=== PATIENT | male | born 1950 | race Caucasian/White ===

== ENCOUNTER 2018-04-08 09:46 | Emergency (ER) | payer MEDICARE ==
--- NOTE | 2018-04-08 11:56 | RAD ---
PORTABLE CHEST 1 VIEW: DATE: 04/08/2018. TIME: 9:28 a.m. HISTORY: Confusion, weakness. 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 There are changes of median sternotomy. The heart size is normal. The lungs are expanded without fo lauren areas of consolidation, pneumothoraces, hillary pulmonary edema, or pleural effusions. IMPRESSION: No radiographic evidence of acute cardiopulmonary process. POS: VIDHI
--- NOTE | 2018-04-08 12:19 | CT ---
CT OF BRAIN PERFORMED WITHOUT COTNRAST ENHANCEMENT: HISTORY: Altered mental status. Weakness. COMPARISON: 07/01/2015 study. FINDINGS: There is generalized ventricular and sulcal prominence. Encephalomalacia change of the left frontal lobe is again noted. There are postop left frontal craniotomy changes again seen. There are no sign s of intracerebral hemorrhage or extraaxial fluid collections. Some of the areas of decreased attenu ation over the left frontal region appear slightly more prominent than on the prior examination but s till appear chronic in nature. No mass effect noted. There is some ex vacuo dilatation of the left frontal horn. Frontal sinuses are clear. The right maxillary sinus is completely opacified. IMPRESSION: Chronic-appearing encephalomalacia change of the left frontal lobe. POS: LIZZY
== END 2018-04-08 11:48 | disposition left against medical advice (07) ==
LOC: ERS 09:46
DX: R53.1 Weakness (principal); I25.10 Atherosclerotic heart disease of native coronary artery without angina pectoris; E10.9 Type 1 diabetes mellitus without complications; I10 Essential (primary) hypertension; F41.9 Anxiety disorder, unspecified; F32.9 Major depressive disorder, single episode, unspecified; Z79.899 Other long term (current) drug therapy; Z79.82 Long term (current) use of aspirin; Z79.84 Long term (current) use of oral hypoglycemic drugs
CPT/HCPCS: 70450; 71045; 93005

== ENCOUNTER 2018-10-24 10:49 | Outpatient (CLI) | payer MEDICARE ==
--- NOTE | 2018-10-24 12:08 | RAD ---
SOFT TISSUE NECK ONE VIEW: HISTORY: Right-sided parotid swelling. FINDINGS: A single lateral view of the soft tissue neck is performed. Extensive post surgical changes overly t he neck. By prior CT, these are on the left side of the neck. The epiglottis appears unremarkable. No prevertebral soft tissue swelling or retropharyngeal mass. The visualized glottis region appears unremarkable. No overt foreign body. IMPRESSION: Post surgical changes. No evidence for plain x-ray soft tissue neck abnormality seen on this single lateral view. Given concern for swelling, follow-up soft tissue neck CT scan with intravenous contra st is recommended. POS: OFF
== END 2018-10-24 10:50 | disposition home or self-care (01) ==
LOC: RAD-FRANK 10:49
PROVIDERS: ATTEND Nurse Practitioner Family
DX: K11.1 Hypertrophy of salivary gland (principal); Z98.890 Other specified postprocedural states
CPT/HCPCS: 70360

== ENCOUNTER 2020-03-05 11:03 | Inpatient (IN) | payer MEDICARE, OTHER ==
[2020-03-05 11:44] LABS: Hemoglobin 14.2 g/dL (14.0-18.0); Mean Corpuscular HGB CONC 31.9 g/dL (32.0-36.0); Mean Corpuscular Hemoglobin 29.4 pg (27.0-31.0); Mean Corpuscular Volume 91.9 fL (78.0-98.0); Mean Platelet Volume 9.3 fL (7.4-10.4); Platelet Count 291 thou/uL (130-400); RBC Distribution Width 12.3 % (11.5-14.5); Red Blood Cell (RBC) Count 4.85 mill/uL (4.70-6.10)
[2020-03-05 12:00] LABS: Band 13 % (5-11); Lymphocytes 10 % (21-51); MDiff Complete? YES; Monocytes 5 % (0-10); Neutrophil 71 % (42-75); Platelet Morphology Comment Appears Adequate; RBC Morphology Normal; Reactive Lymphocytes 1 % (0-10)
[2020-03-05 12:11] LABS: ALT (SGPT) 29 U/L (8-55); AST (SGOT) 75 U/L (5-34); Albumin 3.5 g/dL (3.4-4.8); Alkaline Phosphatase 55 U/L (40-110); Anion Gap 23 mmol/L (10-20); BUN (Urea Nitrogen) 56 mg/dL (8.4-25.7); Bilirubin, Total 0.6 mg/dL (0.2-1.2); CK (CPK) 1135 U/L (30-200); Calc. Creatinine Clearance 0 mL/min (70-130); Calcium 8.9 mg/dL (7.8-10.44); Carbon Dioxide 13 mmol/L (23-31); Chloride 109 mmol/L (98-107); Estimated GFR-MDRD 17; Glucose 126 mg/dL (83-110); Potassium 5.8 mmol/L (3.5-5.1); Protein, Total 7.5 g/dL (5.8-8.1); Sodium 139 mmol/L (136-145)
[2020-03-05] MEDS ORDERED: EPINEPHrine 1 MG/10 ML Abboject SYRINGE ONE ×2 (12:16)
[2020-03-05] MEDS ORDERED: Calcium Chloride 1 GM/10 ML Abboject SYRINGE ONE (12:16)
[2020-03-05] MEDS ORDERED: Sodium Bicarb 50 MEQ/50 ML Abboject 8.4% SYRINGE ONE ×2 (12:16)
[2020-03-05] MEDS ORDERED: Amiodarone 150 MG/3 ML VIAL ONE (12:16)
[2020-03-05] MEDS ORDERED: Dextrose 50% Abboject 50 ML SYRINGE ONE (12:16)
--- NOTE | 2020-03-05 12:30 | RAD ---
PORTABLE CHEST: Date: 03/05/2020 INDICATION: Shortness of breath. COMPARISON: 04/08/2018. FINDINGS: There are hazy alveolar infiltrates seen in both mid and lower lung rankin. Borderline cardiomegaly w ith postop sternotomy change. IMPRESSION: Bilateral infiltrates. POS: AGW
[2020-03-05 12:31] LABS: CKMB 4.7 ng/mL (0-6.6)
[2020-03-05 13:24] LABS: SARS-CoV-2 NAA Rapid Test DETECTED (NotDetected)
[2020-03-05] MEDS ORDERED: Aspirin Chewable 81 MG TAB ONE (13:33)
[2020-03-05] MEDS ORDERED: Azithromycin 500 MG VIAL ONE (13:33)
[2020-03-05] MEDS ORDERED: cefTRIAXone\\ROCEPHIN 2 GM VIAL ONE (13:33)
[2020-03-05] MEDS ORDERED: Enoxaparin Sodium 40 MG/0.4 ML SYRINGE ONE (14:42)
[2020-03-05] MEDS ORDERED: Dexamethasone 10 MG/ML VIAL ONE (14:42)
[2020-03-05 14:43] LABS: Lactic Acid 1.9 mmol/L (0.5-2.2)
[2020-03-05 15:23] LABS: INR-International Normal Ratio 1.1; PTT 24.5 sec (22.9-36.1)
[2020-03-05 16:20] LABS: Troponin I 0.641 ng/mL (< 0.028)
[2020-03-05] MEDS ORDERED: Ondansetron PF 4 MG/2 ML Vial IVP PRN (16:32)
[2020-03-05] MEDS ORDERED: Acetaminophen 325 MG TAB PO PRN (16:32)
[2020-03-05] MEDS ORDERED: Calcium Carbonate 500 MG ChewTAB PO PRN (16:32)
[2020-03-05] MEDS ORDERED: HYDROcodone/Acetaminophen 5/325 mg Tablet PO PRN (16:32)
[2020-03-05] MEDS ORDERED: Senokot S 8.6-50 MG TAB PO PRN (16:32)
[2020-03-05] MEDS ORDERED: Dextrose 50% Abboject 50 ML SYRINGE SLOW IVP PRN (16:37)
[2020-03-05] MEDS ORDERED: HumaLOG 300 UNITS/3 ML VIAL SC PRN (16:37)
[2020-03-05] MEDS ORDERED: Dextrose 5% in Water 1,000 ML IV PRN (16:37)
[2020-03-05 18:33] VITALS: BMI 29.5
--- NOTE | 2020-03-05 18:40 | PDOC.HHP ---
Hospitalist HPI - History of Present Illness SOB/cough History of Present Illness: The patient is unfortunate 69 years old gentleman who has significant past medical histories of type 1 diabetes, hypertension, traumatic brain injury, seizure disorder, CAD with history of CABG who presented to ED with complaint of short of breath and worsening dyspnea. Patient report of cough nonproductive. Patient stated he started feeling generalized weakness over the past few weeks but gradually worse since he attended the last week. Initial work-up in the ED, positive for COVID. Chest x-ray suggestive of pneumonia. He is currently maintaining his oxygen well on 2 L. His troponin was elevated. However he denies any chest pain. Also renal function has worsened compared to previous admission. Patient stated he had not been eating well or drinking much fluid. He also report of subjective fever at home. ED Course: Patient was started on Decadron, and empiric IV antibiotic with Rocephin, azithromycin. He also given a dose of Lovenox. Hospitalist ROS - Review of Systems Other: Complete review of systems have been assessed and discussed with the patient. Negative and positive pertinent symptoms noted in the HPI; ALL other systems are reviewed and negative. Hospitalist History - Past Medical History Cardiac: reports: CAD, HTN, Hyperlipidemia Psych: reports: Anxiety, Depression - Past Surgical History Past Surgical History: reports: CABG, Total Knee Replacement, Other (brain surgery, CEA) - Family History Family History: reports: cancer - Social History Smoking Status: Never smoker Alcohol: reports: None Drugs: reports: none Living Situation: With Family Activity level: independent ambulation - Exam General Appearance: NAD, awake alert Eye: PERRL ENT: dry oral mucosa Neck: supple Heart: RRR, no murmur Respiratory: normal chest expansion, no tachypnea, rhonchi Gastrointestinal: soft, non-tender Extremities: no cyanosis Skin: normal turgor Neurological: cranial nerve grossly intact Musculoskeletal: normal tone Psychiatric: normal affect, normal behavior, A&O x 3 Hospitalist Results - Labs Result Diagrams: 03/05/20 11:29 03/05/20 11:29 Lab results: WBC 11.0 thou/uL (4.8-10.8) H 03/05/20 11:29 Hgb 14.2 g/dL (14.0-18.0) 03/05/20 11:29 Hct 44.5 % (42.0-52.0) 03/05/20 11:29 MCV 91.9 fL (78.0-98.0) 03/05/20 11:29 Plt Count 291 thou/uL (130-400) 03/05/20 11:29 Band Neuts % (Manual) 13 % (5-11) H 03/05/20 11:29 Sodium 139 mmol/L (136-145) 03/05/20 11:29 Potassium 5.8 mmol/L (3.5-5.1) H 03/05/20 11:29 Chloride 109 mmol/L (98-107) H 03/05/20 11:29 Carbon Dioxide 13 mmol/L (23-31) L 03/05/20 11:29 BUN 56 mg/dL (8.4-25.7) H 03/05/20 11:29 Creatinine 3.49 mg/dL (0.7-1.3) H 03/05/20 11:29 Glucose 126 mg/dL (83-110) H 03/05/20 11:29 Lactic Acid 1.9 mmol/L (0.5-2.2) 03/05/20 14:17 Calcium 8.9 mg/dL (7.8-10.44) 03/05/20 11:29 Total Bilirubin 0.6 mg/dL (0.2-1.2) 03/05/20 11:29 AST 75 U/L (5-34) H 03/05/20 11:29 ALT 29 U/L (8-55) 03/05/20 11:29 Alkaline Phosphatase 55 U/L (40-110) 03/05/20 11:29 Creatine Kinase 1135 U/L (30-200) H 03/05/20 11:29 CK-MB (CK-2) 4.7 ng/mL (0-6.6) 03/05/20 11:29 Troponin I 0.641 ng/mL (< 0.028) H* 03/05/20 15:44 B-Natriuretic Peptide 39.0 pg/mL (0-100) 03/05/20 11:44 Serum Total Protein 7.5 g/dL (5.8-8.1) 03/05/20 11:29 Albumin 3.5 g/dL (3.4-4.8) 03/05/20 11:29 - Radiology Interpretation Chest x-ray Status: image reviewed by me Hospitalist H&P A/P - Plan Plan: The patient is unfortunate 69 years old gentleman who has significant past medical history of traumatic brain injury, CAD with history of CABG, hypertension, dyslipidemia, seizure disorder, who presented to the ED with progressive generalized weakness, fever cough and dyspnea has worsened for the last few days. Patient was found positive for COVID pneumonia. COVID-19 pneumonia - respiratory status appears to be stable --admit to tele. cont O2 supplement --cont Azithromycin/Rocephin empirically --Decadron 10 mg daily --Given elevated d-dimer and trop, unable to obtain CTA - will treat him empirically with Lovenox 1 mg/kg daily based on renal function, split into BID JOHN on CKD stage III --pt appears volume depleted on exam --hold ACEi, avoid nephrotoxic agent --IVF hydration, follow renal function Elevated troponin --in setting of JOHN, unclear significance. trend level. check 2D echo --Lovenox as above. cont home meds ASA/BB Elevated D-dimer --likely d/t COVID 19 infection. Unable to obtain CTA, treat empirically with Lovenox based on renal function. CAD with history of CABG --no cp, resume home meds Hypertension --BP stable cont home meds Diabetes type 2 --Hold Metformin d/t renal function. ISS. Add Lantus, monitor BG and adjust prn as pt is on steroid Seizure disorder --cont Keppra DVT ppx: high risk, Lovenox GI ppx: Pepcid, pt is on steroid Code Status: FULL
[2020-03-05 19:54] LABS: Critical Call Chem Troponin I RESULT DECREASING
[2020-03-05] MEDS ORDERED: Enoxaparin Sodium 40 MG/0.4 ML SYRINGE SC SCH (21:00)
[2020-03-05] MEDS: Enoxaparin Sodium 60 MG/0.6 ML SYRINGE SC SCH (21:25)
[2020-03-05] MEDS: Metoprolol Tartrate 25 MG TAB PO SCH (21:26)
[2020-03-05] MEDS: Famotidine/PF 20 mg/2ml Vial SLOW IVP SCH (21:26)
[2020-03-05] MEDS: hydrALAZINE 25 MG TAB PO SCH (21:26)
[2020-03-05] MEDS: Insulin Glargine 10 UNITS in Pre-Filled Syringe SC SCH (21:27)
[2020-03-05] MEDS: levETIRAcetam 500 MG TAB PO SCH (21:27)
[2020-03-05 22:31] LABS: Bilirubin Negative (Negative); Blood, Urine 2+ (Negative); Clarity Turbid (Clear); Glucose, Urine (Dipstick) Normal (Negative); Ketone, Urine Negative (Negative); Leukocyte Negative Leu/uL (Negative); Nitrite Negative (Negative); Protein, Urine (Dipstick) 30 mg/dL (Neg-Trace); Specific Gravity, Urine 1.014 (1.002-1.036); Squamous Epithelial 0-3 HPF (0-3); Urobilinogen Normal mg/dL (Less than 2)
[2020-03-05 22:38] LABS: Bacteria/HPF 1+ HPF (None Seen)
[2020-03-05 22:40] LABS: Urine Culture Reflex Yes Yes
[2020-03-06 04:44] LABS: #Lymphocytes 0.6 thou/uL (1.20-3.40); #Monocytes 0.3 thou/uL (0.11-0.59); #Neutrophils 5.1 thou/uL (1.40-6.50); %Eosinophils 0.3 % (0.0-10.0); %Lymphocytes 9.7 % (21.0-51.0); %Monocytes 4.5 % (0.0-10.0); %Neutrophils 85.4 % (42.0-75.0); Hemoglobin 12.9 g/dL (14.0-18.0); Mean Corpuscular HGB CONC 34.2 g/dL (32.0-36.0); Mean Corpuscular Hemoglobin 30.7 pg (27.0-31.0); Mean Platelet Volume 8.7 fL (7.4-10.4); Platelet Count 307 thou/uL (130-400); RBC Distribution Width 11.9 % (11.5-14.5); Red Blood Cell (RBC) Count 4.21 mill/uL (4.70-6.10)
[2020-03-06 05:02] LABS: Anion Gap 18 mmol/L (10-20); BUN (Urea Nitrogen) 64 mg/dL (8.4-25.7); Calc. Creatinine Clearance 31 mL/min (70-130); Calcium 8.6 mg/dL (7.8-10.44); Carbon Dioxide 15 mmol/L (23-31); Chloride 115 mmol/L (98-107); Estimated GFR-MDRD 20; Glucose 150 mg/dL (83-110); Potassium 4.6 mmol/L (3.5-5.1); Sodium 143 mmol/L (136-145)
[2020-03-06] MEDS ORDERED: Dexamethasone 4 MG TAB PO SCH (08:00)
[2020-03-06] MEDS: Enoxaparin Sodium 60 MG/0.6 ML SYRINGE SC SCH ×2 (09:37→21:09)
[2020-03-06] MEDS: Aspirin 81 mg Enteric Coated Tablet PO SCH (09:37)
[2020-03-06] MEDS: hydrALAZINE 25 MG TAB PO SCH ×3 (09:38→21:10)
[2020-03-06] MEDS: levETIRAcetam 500 MG TAB PO SCH ×2 (09:38→21:12)
[2020-03-06] MEDS: Metoprolol Tartrate 25 MG TAB PO SCH ×2 (09:38→21:12)
[2020-03-06] MEDS: Oxybutynin 5 MG TAB PO SCH (09:39)
[2020-03-06] MEDS ORDERED: cefTRIAXone\\ROCEPHIN 1 GM in Sodium Chloride 0.9% 100 ML IVPB SCH (14:00)
[2020-03-06] MEDS: Azithromycin 500 MG in Sodium Chloride 0.9% 250 ML 250 ML IVPB SCH (14:01)
[2020-03-06] MEDS ORDERED: hydrALAZINE 20 MG/ML VIAL SLOW IVP PRN (17:13)
--- NOTE | 2020-03-06 17:16 | PDOC.HOSPP ---
- Subjective Subjective: Patient was seen examined at bedside. Blood pressure is elevated. He is slightly more hypoxic this morning, he is currently is on 5 L via nasal cannula. His white count has normalized. His hyperkalemia resolved. He is still metabolic acidosis. His IV fluids have been adjusted with sodium bicarb to correct his underlying metabolic acidosis. He denies any chest pain. Patient appeared to be comfortable on exam. I have discussed with ID given his GFR, he is excluded from Redesevir - Objective Vital Signs & Weight: Vital Signs (12 hours) Temp Pulse Resp BP Pulse Ox 03/06/20 15:00 93 L 03/06/20 14:02 67 03/06/20 13:45 91 L 03/06/20 12:00 98.3 F 67 20 179/76 H 94 L 03/06/20 08:55 98.4 F 69 20 181/78 H 92 L 03/06/20 06:25 24 H 97 Weight Admit Weight 217 lb 9.6 oz Weight 217 lb 9.6 oz I&O: 03/05/20 03/06/20 03/07/20 06:59 06:59 06:59 Intake Total 120 120 Output Total 350 Balance -230 120 Result Diagrams: 03/06/20 04:27 03/06/20 04:27 Additional Labs: Accuchecks 03/06/20 03/06/20 11:58 05:26 POC Glucose 158 H 140 H Radiology Reviewed by me: Yes EKG Reviewed by me: Yes Hospitalist ROS - Medication Medications: Active Medications Generic Name Dose Route Start Last Admin Trade Name Freq PRN Reason Stop Dose Admin Aspirin 81 mg 03/06/20 09:00 03/06/20 09:37 Aspirin 81 Mg Enteric Coated Tablet PO 81 mg DAILY CHANELL Administration Enoxaparin Sodium 50 mg 03/05/20 21:00 03/06/20 09:37 Enoxaparin Sodium 60 Mg/0.6 Ml Syringe SC 50 mg BID CHANELL Administration Famotidine 20 mg 03/05/20 21:00 03/05/20 21:26 Famotidine/Pf 20 Mg/2ml Vial SLOW IVP 20 mg QPM CHANELL Administration Hydralazine HCl 50 mg 03/05/20 21:00 03/06/20 14:02 Hydralazine 25 Mg Tab PO 50 mg TID CHANELL Administration Ceftriaxone Sodium 1 gm/ 100 mls @ 200 mls/hr 03/06/20 14:00 03/06/20 12:44 Sodium Chloride IVPB 100 mls 1400 CHANELL Administration Azithromycin 500 mg/ Sodium 250 mls @ 250 mls/hr 03/06/20 13:00 03/06/20 14:01 Chloride IVPB 250 mls 1300 CHANELL Administration Insulin Glargine 10 units/ 0.1 mls @ 0 mls/hr 03/05/20 21:00 03/05/20 21:27 Miscellaneous Medication SC 0.1 mls HS CHANELL Administration Sodium Bicarbonate 75 meq/ 1,075 mls @ 75 mls/hr 03/06/20 07:30 03/06/20 09:36 Sodium Chloride IV 1,075 mls .[id number] CHANELL Administration Levetiracetam 500 mg 03/05/20 21:00 03/06/20 09:38 Levetiracetam 500 Mg Tab PO 500 mg BID CHANELL Administration Metoprolol Tartrate 12.5 mg 03/05/20 21:00 03/06/20 09:38 Metoprolol Tartrate 25 Mg Tab PO 12.5 mg BID CHANELL Administration Oxybutynin Chloride 5 mg 03/06/20 09:00 03/06/20 09:39 Oxybutynin 5 Mg Tab PO 5 mg DAILY CHANELL Administration - Exam General Appearance: NAD Eye: PERRL ENT: normocephalic atraumatic Neck: supple Heart: RRR Respiratory: rhonchi Gastrointestinal: soft Extremities: no cyanosis Skin: normal turgor Neurological: cranial nerve grossly intact Musculoskeletal: normal tone Psychiatric: normal affect, normal behavior, A&O x 3 Hosp A/P - Plan The patient is unfortunate 69 years old gentleman who has significant past medical history of traumatic brain injury, CAD with history of CABG, hypertension, dyslipidemia, seizure disorder, who presented to the ED with progressive generalized weakness, fever cough and dyspnea has worsened for the last few days. Patient was found positive for COVID pneumonia. COVID-19 pneumonia - respiratory status appears to be stable --admit to tele. cont O2 supplement --cont Azithromycin/Rocephin empirically --Decadron 10 mg daily --Given elevated d-dimer and trop, unable to obtain CTA - will treat him empirically with Lovenox 1 mg/kg daily based on renal function, split into BID JOHN on CKD stage III --pt appears volume depleted on exam --hold ACEi, avoid nephrotoxic agent --IVF hydration, follow renal function Elevated troponin --in setting of JOHN, unclear significance. trend level. check 2D echo --Lovenox as above. cont home meds ASA/BB Elevated D-dimer --likely d/t COVID 19 infection. Unable to obtain CTA, treat empirically with Lovenox based on renal function. CAD with history of CABG --no cp, resume home meds Hypertension --BP stable cont home meds Diabetes type 2 --Hold Metformin d/t renal function. ISS. Add Lantus, monitor BG and adjust prn as pt is on steroid Seizure disorder --cont Keppra DVT ppx: high risk, Lovenox GI ppx: Pepcid, pt is on steroid Code Status: FULL
[2020-03-06] MEDS ORDERED: Amlodipine 10 MG TAB PO SCH (17:30)
--- NOTE | 2020-03-06 17:34 | PDOC.HOSPP ---
- Subjective Subjective: The patient is unfortunate 69 years old gentleman who has significant past medical histories of type 1 diabetes, hypertension, traumatic brain injury, seizure disorder, CAD with history of CABG who presented to ED with complaint of short of breath and worsening dyspnea. Patient report of cough nonproductive. Patient stated he started feeling generalized weakness over the past few weeks but gradually worse since he attended the last week. Initial work-up in the ED, positive for COVID. Chest x-ray suggestive of pneumonia. He is currently maintaining his oxygen well on 2 L. His troponin was elevated. However he denies any chest pain. Also renal function has worsened compared to previous admission. Patient stated he had not been eating well or drinking much fluid. He also report of subjective fever at home. - Objective Vital Signs & Weight: Vital Signs (12 hours) Temp Pulse Resp BP Pulse Ox 03/06/20 15:00 93 L 03/06/20 14:02 67 03/06/20 13:45 91 L 03/06/20 12:00 98.3 F 67 20 179/76 H 94 L 03/06/20 08:55 98.4 F 69 20 181/78 H 92 L 03/06/20 06:25 24 H 97 Weight Admit Weight 217 lb 9.6 oz Weight 217 lb 9.6 oz I&O: 03/05/20 03/06/20 03/07/20 06:59 06:59 06:59 Intake Total 120 120 Output Total 350 Balance -230 120 Result Diagrams: 03/06/20 04:27 03/06/20 04:27 Additional Labs: Accuchecks 03/06/20 03/06/20 03/06/20 17:28 11:58 05:26 POC Glucose 166 H 158 H 140 H Radiology Reviewed by me: Yes EKG Reviewed by me: Yes Hospitalist ROS - Medication Medications: Active Medications Generic Name Dose Route Start Last Admin Trade Name Freq PRN Reason Stop Dose Admin Aspirin 81 mg 03/06/20 09:00 03/06/20 09:37 Aspirin 81 Mg Enteric Coated Tablet PO 81 mg DAILY CHANELL Administration Enoxaparin Sodium 50 mg 03/05/20 21:00 03/06/20 09:37 Enoxaparin Sodium 60 Mg/0.6 Ml Syringe SC 50 mg BID CHANELL Administration Famotidine 20 mg 03/05/20 21:00 03/05/20 21:26 Famotidine/Pf 20 Mg/2ml Vial SLOW IVP 20 mg QPM CHANELL Administration Ceftriaxone Sodium 1 gm/ 100 mls @ 200 mls/hr 03/06/20 14:00 03/06/20 12:44 Sodium Chloride IVPB 100 mls 1400 CHANELL Administration Azithromycin 500 mg/ Sodium 250 mls @ 250 mls/hr 03/06/20 13:00 03/06/20 14:01 Chloride IVPB 250 mls 1300 CHANELL Administration Insulin Glargine 10 units/ 0.1 mls @ 0 mls/hr 03/05/20 21:00 03/05/20 21:27 Miscellaneous Medication SC 0.1 mls HS CHANELL Administration Sodium Bicarbonate 75 meq/ 1,075 mls @ 75 mls/hr 03/06/20 07:30 03/06/20 09:36 Sodium Chloride IV 1,075 mls .[id number] CHANELL Administration Levetiracetam 500 mg 03/05/20 21:00 03/06/20 09:38 Levetiracetam 500 Mg Tab PO 500 mg BID CHANELL Administration Metoprolol Tartrate 12.5 mg 03/05/20 21:00 03/06/20 09:38 Metoprolol Tartrate 25 Mg Tab PO 12.5 mg BID CHANELL Administration Oxybutynin Chloride 5 mg 03/06/20 09:00 03/06/20 09:39 Oxybutynin 5 Mg Tab PO 5 mg DAILY CHANELL Administration - Exam General Appearance: NAD Eye: PERRL ENT: normocephalic atraumatic Neck: supple Heart: RRR Respiratory: CTAB Gastrointestinal: soft Extremities: no cyanosis Skin: normal turgor Neurological: cranial nerve grossly intact Musculoskeletal: normal tone Psychiatric: normal affect Hosp A/P - Plan The patient is unfortunate 69 years old gentleman who has significant past medical history of traumatic brain injury, CAD with history of CABG, hypertension, dyslipidemia, seizure disorder, who presented to the ED with progressive generalized weakness, fever cough and dyspnea has worsened for the last few days. Patient was found positive for COVID pneumonia. COVID-19 pneumonia - respiratory status appears to be stable --cont Azithromycin/Rocephin empirically --Decadron 10 mg daily --Cont O2 supplement, monitor closely --Given elevated d-dimer and trop, unable to obtain CTA - will treat him empirically with Lovenox 1 mg/kg daily based on renal function, split into BID --GFR is less than <20, exclude from Remdesvir JOHN on CKD stage III --pt appears volume depleted on exam --hold ACEi, avoid nephrotoxic agent --IVF hydration, follow renal function, adjust fluid Elevated troponin --in setting of JOHN, unclear significance. trend level. check 2D echo --Lovenox as above. cont home meds ASA/BB Elevated D-dimer --likely d/t COVID 19 infection. Unable to obtain CTA, treat empirically with L ovenox based on renal function. CAD with history of CABG --no cp, resume home meds Hypertension --BP stable cont home meds Diabetes type 2 --Hold Metformin d/t renal function. ISS. Add Lantus, monitor BG and adjust prn as pt is on steroid Seizure disorder --cont Keppra DVT ppx: high risk, Lovenox GI ppx: Pepcid, pt is on steroid Code Status: FULL
[2020-03-06] MEDS: Famotidine/PF 20 mg/2ml Vial SLOW IVP SCH (21:10)
[2020-03-06] MEDS: Insulin Glargine 10 UNITS in Pre-Filled Syringe SC SCH (21:16)
[2020-03-07] MEDS ORDERED: Benzonatate 100 MG CAP PO PRN (04:04)
[2020-03-07] MEDS ORDERED: Guaifenesin DM 100-10/5 ML UDCUP PO PRN (04:04)
[2020-03-07 05:09] LABS: #Lymphocytes 0.3 thou/uL (1.20-3.40); #Monocytes 0.5 thou/uL (0.11-0.59); %Eosinophils 0.2 % (0.0-10.0); %Lymphocytes 2.8 % (21.0-51.0); %Monocytes 4.6 % (0.0-10.0); %Neutrophils 92.5 % (42.0-75.0); Hemoglobin 12.6 g/dL (14.0-18.0); Mean Corpuscular HGB CONC 34.7 g/dL (32.0-36.0); Mean Corpuscular Hemoglobin 31.2 pg (27.0-31.0); Mean Corpuscular Volume 89.9 fL (78.0-98.0); Mean Platelet Volume 8.4 fL (7.4-10.4); Platelet Count 384 thou/uL (130-400); RBC Distribution Width 12.1 % (11.5-14.5); Red Blood Cell (RBC) Count 4.05 mill/uL (4.70-6.10); White Blood Cell (WBC) Count 10.8 thou/uL (4.8-10.8)
[2020-03-07 05:30] LABS: Anion Gap 19 mmol/L (10-20); BUN (Urea Nitrogen) 61 mg/dL (8.4-25.7); Calc. Creatinine Clearance 35 mL/min (70-130); Calcium 8.6 mg/dL (7.8-10.44); Carbon Dioxide 16 mmol/L (23-31); Chloride 117 mmol/L (98-107); Estimated GFR-MDRD 23; Glucose 165 mg/dL (83-110); Potassium 4.3 mmol/L (3.5-5.1); Sodium 148 mmol/L (136-145)
[2020-03-07] MEDS ORDERED: Dexamethasone 4 mg/ml Vial SLOW IVP SCH (09:00)
[2020-03-07] MEDS ORDERED: Sodium Bicarbonate 75 MEQ in Dextrose 5% in Water 500 ML IV SCH ×2 (09:15→12:11)
[2020-03-07] MEDS: Amlodipine 10 MG TAB PO SCH (09:34)
[2020-03-07] MEDS: hydrALAZINE 25 MG TAB PO SCH ×3 (09:35→19:42)
[2020-03-07] MEDS: Dexamethasone 4 mg/ml Vial SLOW IVP SCH (09:35)
[2020-03-07] MEDS: Enoxaparin Sodium 60 MG/0.6 ML SYRINGE SC SCH ×2 (09:35→19:40)
[2020-03-07] MEDS: levETIRAcetam 500 MG TAB PO SCH ×2 (09:35→19:42)
[2020-03-07] MEDS: Aspirin 81 mg Enteric Coated Tablet PO SCH (09:35)
[2020-03-07] MEDS: Oxybutynin 5 MG TAB PO SCH (09:36)
[2020-03-07] MEDS: Metoprolol Tartrate 25 MG TAB PO SCH ×2 (09:36→19:41)
[2020-03-07 10:12] LABS: INR-International Normal Ratio 1.2; Prothrombin Time 15.2 sec (12.0-14.7)
[2020-03-07 10:13] LABS: PTT 31.8 sec (22.9-36.1)
[2020-03-07] MEDS: Azithromycin 500 MG in Sodium Chloride 0.9% 250 ML 250 ML IVPB SCH (11:57)
--- NOTE | 2020-03-07 16:42 | PDOC.HOSPP ---
- Subjective Encounter Date: 03/07/20 Encounter Time: 12:30 Subjective: Patient up in bed complains of mild shortness of breath. - Objective Vital Signs & Weight: Vital Signs (12 hours) Temp Pulse Resp BP Pulse Ox Pulse Ox Pulse Ox 03/07/20 16:07 98.4 F 79 20 163/78 H 93 L 03/07/20 12:26 84 L 90 L 03/07/20 11:42 97.9 F 71 20 167/74 H 96 03/07/20 09:00 98 F 82 20 192/87 H 94 L 03/07/20 08:30 96 Pulse Ox 03/07/20 16:07 03/07/20 12:26 91 L 03/07/20 11:42 03/07/20 09:00 03/07/20 08:30 Weight Admit Weight 217 lb 9.6 oz Weight 217 lb 9.6 oz I&O: 03/06/20 03/07/20 03/08/20 06:59 06:59 06:59 Intake Total 120 2170 180 Output Total 350 1400 300 Balance -230 770 -120 Result Diagrams: 03/07/20 04:47 03/07/20 04:47 Additional Labs: Accuchecks 03/07/20 03/06/20 03/06/20 12:11 21:05 17:28 POC Glucose 173 H 154 H 166 H Hospitalist ROS - Review of Systems Respiratory: reports: shortness of breath Gastrointestinal: denies: nausea, vomiting, abdominal pain, diarrhea, constipation, melena, hematochezia, other Genitourinary: denies: dysuria, frequency, incontinence, hematuria, retention, other - Medication Medications: Active Medications Generic Name Dose Route Start Last Admin Trade Name Freq PRN Reason Stop Dose Admin Amlodipine Besylate 10 mg 03/07/20 09:00 03/07/20 09:34 Amlodipine 10 Mg Tab PO 10 mg DAILY CHANELL Administration Aspirin 81 mg 03/06/20 09:00 03/07/20 09:35 Aspirin 81 Mg Enteric Coated Tablet PO 81 mg DAILY CHANELL Administration Benzonatate 100 mg 03/07/20 04:04 03/07/20 05:55 Benzonatate 100 Mg Cap PO 100 mg Q4H PRN Administration Cough Dexamethasone 6 mg 03/07/20 09:00 03/07/20 09:35 Dexamethasone 4 Mg/Ml Vial SLOW IVP 6 mg DAILY CHANELL Administration Enoxaparin Sodium 50 mg 03/05/20 21:00 03/07/20 09:35 Enoxaparin Sodium 60 Mg/0.6 Ml Syringe SC 50 mg BID CHANELL Administration Famotidine 20 mg 03/05/20 21:00 03/06/20 21:10 Famotidine/Pf 20 Mg/2ml Vial SLOW IVP 20 mg QPM CHANELL Administration Hydralazine HCl 75 mg 03/06/20 21:00 03/07/20 15:26 Hydralazine 25 Mg Tab PO 75 mg TID CHANELL Administration Azithromycin 500 mg/ Sodium 250 mls @ 250 mls/hr 03/06/20 13:00 03/07/20 11:57 Chloride IVPB 250 mls 1300 CHANELL Administration Insulin Glargine 10 units/ 0.1 mls @ 0 mls/hr 03/05/20 21:00 03/06/20 21:16 Miscellaneous Medication SC 0.1 mls HS CHANELL Administration Levetiracetam 500 mg 03/05/20 21:00 03/07/20 09:35 Levetiracetam 500 Mg Tab PO 500 mg BID CHANELL Administration Metoprolol Tartrate 12.5 mg 03/05/20 21:00 03/07/20 09:36 Metoprolol Tartrate 25 Mg Tab PO 12.5 mg BID CHANELL Administration Oxybutynin Chloride 5 mg 03/06/20 09:00 03/07/20 09:36 Oxybutynin 5 Mg Tab PO 5 mg DAILY CHANELL Administration - Exam Heart: negative: RRR, no murmur, no gallops, no rubs, normal peripheral pulses, irregular, diminshed peripheral pulses, murmur present, II/IV, III/IV Respiratory: negative: CTAB, no wheezes, no rales, no ronchi, normal chest expansion, no tachypnea, normal percussion, rales, rhonchi, tachypneic, wheezes Gastrointestinal: negative: soft, non-tender, non-distended, normal bowel sounds, no palpable masses, no hepatomegaly, no splenomegaly, no bruit, no guarding, no rigidity, tender to palpation, distended, diminished bowl sounds, voluntary guarding Hosp A/P (1) Acute and chronic respiratory failure with hypoxia Code(s): J96.21 - ACUTE AND CHRONIC RESPIRATORY FAILURE WITH HYPOXIA Status: Acute (2) COVID-19 Code(s): U07.1 - COVID-19 Status: Acute (3) Diabetes type 2, uncontrolled Code(s): E11.65 - TYPE 2 DIABETES MELLITUS WITH HYPERGLYCEMIA Status: Chronic (4) CAD (coronary artery disease) Code(s): I25.10 - ATHSCL HEART DISEASE OF [place] CORONARY ARTERY W/O ANG PCTRS Status: Acute - Plan Patient 69-year-old male with past medical history of type 1 diabetes, hypertension, traumatic brain injury, seizure disorder, CABG comes in with complaints of shortness of breath. Patient was found to be COVID positive. She states that he has been feeling unwell for the past few weeks but gradually got worse since he attended a last week. 03/07 patient was put on high flow this a.m. He is on Decadron and a sore throat. Will consult infectious disease.
[2020-03-07 18:44] LABS: Anion Gap 18 mmol/L (10-20); BUN (Urea Nitrogen) 57 mg/dL (8.4-25.7); Calc. Creatinine Clearance 40 mL/min (70-130); Calcium 8.3 mg/dL (7.8-10.44); Carbon Dioxide 16 mmol/L (23-31); Chloride 119 mmol/L (98-107); Estimated GFR-MDRD 27; Glucose 216 mg/dL (83-110); Potassium 3.9 mmol/L (3.5-5.1); Sodium 149 mmol/L (136-145)
[2020-03-07] MEDS: Famotidine/PF 20 mg/2ml Vial SLOW IVP SCH (19:41)
--- NOTE | 2020-03-07 19:52 | CON ---
DATE OF CONSULTATION: 03/07/2020 REASON FOR CONSULTATION: COVID pneumonia. 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 It is not clear of the exact sequence of events and he cannot provide a reliable account. On arrival, his BP 120/50, pulse 84, temperature 99, O2 saturations were 88% on room air and 90% on 3 L oxygen. He is currently on high-flow oxygen and saturating at 98%. He is a bit encephalopathic. He is able to tell me where he is and his name, but he cannot give me a full account of his recent disease history. Denies any headaches. He has some abdominal tenderness in the upper segments. Denies any back pain. No joint symptoms. 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 He required surgical intervention and protracted antimicrobial therapy. He also had bypass graft surgery in the past, thyroid mass removal, right knee surgery, had a gastrostomy tube, which was removed and spine fusion. SOCIAL HISTORY: Lives in [place], retired, chews tobacco, but does not smoke. Does not drink alcoholic beverages. ALLERGIES: NONE. CURRENT MEDICATIONS: 1. Norvasc. 2. Azithromycin. 3. Decadron. 4. Enoxaparin. 5. Metoprolol. 6. Oxybutynin. 7. Keppra. PHYSICAL EXAMINATION: VITAL SIGNS: T-max 98.2, blood pressure 160/78, heart rate 79, respiratory rate 20, O2 saturation 93% to 94% of 50% flow rate. SKIN: Shows a peripheral IV access. He has no areas of skin breakdown. Some areas of telangiectases in the upper chest. GENERAL: He is voiding in the urinal. HEENT: He is a bit encephalopathic, keeps his eyes closed and removes the high- flow nasal cannula O2 frequently due to agitation and confusional state. Ocular movements conjugate. Numerous missing teeth. He has a hole in the palate from the previous described accident in 2014. No evidence of CSF leak noted. LUNGS: Symmetric air entry. No obvious crackles or wheezing. HEART: Diminished heart sounds. S1 and S2. Regular rate. ABDOMEN: Soft, not distended with mild tenderness in the upper segments. No ascites or organomegaly. No bladder distention. EXTREMITIES: Pulses 1+ in dorsalis pedis. Plantar response are flexor. No edema. He is able to move extremities equally. NEUROLOGIC: He knows his name and where he is. He could not give me a full account of his history. Some memory issues plus the toxic metabolic encephalopathy. LABORATORY DATA: White cell count 11 and now 10.8, hemoglobin is down to 12.6, platelets 384 with 92% neutrophils. INR 1.2. Creatinine is at 3.49 and now down to 2.71, his baseline was 1.5 in 2016. The liver profile showed AST 75. CK was 1100 and CRP was 14, down to 6 now. Albumin 3.5. Urinalysis with 4 to 6 wbc's SARS CoV2 pcr detected. Chest x-ray with bilateral infiltrates, mid lower lung rankin are hazy. ASSESSMENT: 1. Ischemic cardiomyopathy, prior injury to the sinus area with brain abscess, which resolved with a persisting defect in the hard palate, but no obvious cerebrospinal fluid leak. 2. COVID pneumonia severe, on high-flow O2. The patient has ISARIC 4C score greater than 15, so he is at least 60% risk of mortality secondary to this illness. We will continue on Decadron. We will write for convalescent plasma since he is not eligible for remdesivir, enoxaparin, and supportive therapy. He is on high-flow now and over the next 48 hours, we will see how he does. May end up in a mechanical ventilator. Job ID: [id number] [facility]
[2020-03-07] MEDS: Insulin Glargine 10 UNITS in Pre-Filled Syringe SC SCH (20:52)
[2020-03-08 05:43] LABS: #Lymphocytes 0.4 thou/uL (1.20-3.40); #Monocytes 0.5 thou/uL (0.11-0.59); #Neutrophils 9.9 thou/uL (1.40-6.50); %Eosinophils 0.4 % (0.0-10.0); %Lymphocytes 3.5 % (21.0-51.0); %Monocytes 4.9 % (0.0-10.0); %Neutrophils 91.2 % (42.0-75.0); Hemoglobin 11.9 g/dL (14.0-18.0); Mean Corpuscular HGB CONC 34.3 g/dL (32.0-36.0); Mean Corpuscular Hemoglobin 30.9 pg (27.0-31.0); Mean Corpuscular Volume 89.9 fL (78.0-98.0); Mean Platelet Volume 8.5 fL (7.4-10.4); Platelet Count 392 thou/uL (130-400); Red Blood Cell (RBC) Count 3.85 mill/uL (4.70-6.10); White Blood Cell (WBC) Count 10.9 thou/uL (4.8-10.8)
[2020-03-08 06:04] LABS: Anion Gap 18 mmol/L (10-20); BUN (Urea Nitrogen) 51 mg/dL (8.4-25.7); Calc. Creatinine Clearance 43 mL/min (70-130); Calcium 8.3 mg/dL (7.8-10.44); Carbon Dioxide 19 mmol/L (23-31); Chloride 117 mmol/L (98-107); Estimated GFR-MDRD 29; Glucose 146 mg/dL (83-110); Potassium 3.7 mmol/L (3.5-5.1); Sodium 150 mmol/L (136-145)
[2020-03-08] MEDS ORDERED: Sodium Bicarbonate 150 MEQ in Dextrose 5% in Water 500 ML IV SCH (08:15)
[2020-03-08] MEDS: Enoxaparin Sodium 60 MG/0.6 ML SYRINGE SC SCH (08:31)
[2020-03-08] MEDS: Amlodipine 10 MG TAB PO SCH (08:32)
[2020-03-08] MEDS: Oxybutynin 5 MG TAB PO SCH (08:32)
[2020-03-08] MEDS: Dexamethasone 4 mg/ml Vial SLOW IVP SCH (08:32)
[2020-03-08] MEDS: Metoprolol Tartrate 25 MG TAB PO SCH (08:32)
[2020-03-08] MEDS: hydrALAZINE 25 MG TAB PO SCH ×2 (08:33→17:00)
[2020-03-08] MEDS: levETIRAcetam 500 MG TAB PO SCH (08:33)
[2020-03-08] MEDS ORDERED: Sodium Bicarbonate 50 MEQ in Dextrose 5% in Water 1,000 ML IV SCH (08:36)
[2020-03-08] MEDS: Aspirin 81 mg Enteric Coated Tablet PO SCH (08:38)
[2020-03-08 09:19] VITALS: BP 188/81; TEMP 99
--- NOTE | 2020-03-09 03:26 | DIS ---
DATE OF ADMISSION: 03/05/2020 DATE OF DISCHARGE: 03/08/2020 SUMMARY: DATE OF : 03/08/2020. HOSPITAL COURSE: The patient is a 69-year-old male, who initially presented to the hospital on 03/05 with shortness of breath and cough. The patient was positive for COVID. He initially was on 2 L did well. However, he continued to require high oxygen requirements and at this time, he was put on high-flow. The patient this morning per nursing notes has stated that the patient got very agitated, stated that he needs to get out, fell back, had a tonic-clonic seizure. Suction was attempted and the patient was rolled on the side. At this time, his O2 saturation was noted to be in the 40s and a code blue was called. CPR was initiated. The patient was intubated successfully by the ER doc and the residents. However, the patient had multiple VFib, ventricular tachycardia arrest, was shocked multiple times. We did get ROSC; however, the patient kept on coding continuously for about four or five times. At this time, I had spoken with the patient's , Kassie Johnson and also the patient's daughter and after a long discussion with the family, the decision per family was to stop compressions. The patient was unable to be stabilized. Prior to this, the patient had received convalescent plasma. His overall mortality was high given his comorbidities. He was also seen by Infectious Disease doctor. Condolences were given to the family. Job ID: [id number]
--- NOTE | 2020-03-09 05:08 | CON ---
DATE OF CONSULTATION: 03/08/2020 SERVICE: Nephrology. REASON FOR CONSULTATION: Renal insufficiency and electrolyte derangements. REQUESTING PHYSICIAN: Becky Harvey MD CHIEF COMPLAINT: Worsening shortness of breath. HISTORY OF PRESENT ILLNESS: This is a 69-year-old male with known history of traumatic brain injury, seizure disorder, diabetes and hypertension, amongst others, who was admitted on March 05, 2020, due to worsening shortness of breath as well as nonproductive cough and generalized weakness. Evaluation in the ER showed abnormal chest x-ray suggestive of pneumonia. The patient also was found to have COVID infection. He also was found to have abnormal renal function as well as electrolyte derangement and acid-base derangement necessitating Nephrology consult. Overnight, the patient reportedly was more confused and agitated and pulling on line, hence had restraints. The patient was unable to provide any significant history for me. He, however, continued to have cough, but denied nausea or vomiting. On presentation, the patient had hyperkalemia with potassium of 5.8, metabolic acidosis, as well as elevated creatinine of 3.49 as well as elevated CK level. The patient was treated with IV fluid with improvement of creatinine; however, he subsequently developed hypernatremia. It was also reported that oral intake was poor prior to presentation. The patient also has poor oral intake. PAST MEDICAL HISTORY: 1. Traumatic brain injury. 2. Seizure disorder. 3. Coronary artery disease. 4. Type 1 diabetes mellitus, on insulin. 5. Hypertension. 6. Hyperlipidemia. 7. Anxiety and depression. PAST SURGICAL HISTORY: 1. Coronary artery bypass graft. 2. Total knee replacement. 3. Brain surgery. FAMILY HISTORY: Significant for cancer in relatives. SOCIAL HISTORY: The patient lives with family in [place]. He is retired. Currently chews tobacco, but denied smoking. Also, denied alcohol use. ALLERGIES: NO KNOWN DRUG ALLERGIES REPORTED. MEDICATIONS: Prior to hospital medications as follows; 1. Hydralazine 50 mg p.o. t.i.d. 2. Aspirin 81 mg p.o. daily. 3. Ditropan 5 mg p.o. daily. 4. Metformin 500 mg p.o. b.i.d. 5. Metoprolol 12.5 mg p.o. b.i.d. 6. Keppra 500 mg p.o. b.i.d. 7. Lisinopril 10 mg p.o. b.i.d. Current hospital medications are as follows; 1. Azithromycin 500 mg daily with last dose yesterday. 2. Lantus 10 units daily. 3. Bicarb infusion. 4. Amlodipine 10 mg p.o. daily. 5. Aspirin 81 mg daily. 6. Dexamethasone 6 mg IV daily. 7. Lovenox 50 mg subcutaneously b.i.d. 8. Pepcid 20 mg IV daily. 9. Hydralazine 75 mg p.o. t.i.d. 10. Keppra 500 mg p.o. b.i.d. 11. Metoprolol 12.5 mg p.o. b.i.d. 12. Oxybutynin 5 mg p.o. daily. 13. Acetaminophen 650 mg q.4 p.r.n. for pain. REVIEW OF SYSTEMS: This is grossly limited due to the patient's condition. He however denied fever, chest pain, nausea or vomiting. Other components are unremarkable. PHYSICAL EXAMINATION: VITAL SIGNS: Temperature 99.0, pulse 106, respiratory rate 28, SpO2 96% on high-flow oxygen, and blood pressure 188/81. I and O in the last 24 hours showed total intake of 1080 with output of 500. GENERAL: Elderly male, in mild distress. Afebrile. Anicteric. Acyanotic. HEENT: Scar of prior head injury/surgery noted. Otherwise, normocephalic with no obvious acute trauma. Oral mucosa is dry. NECK: Supple with no JVD. CARDIOVASCULAR: Regular rhythm and rate, but tachycardic. RESPIRATORY: Fair air entry bilaterally with few transmitted breath sounds. Tachypneic. No obvious distress appreciated. No rhonchi appreciated. GI: Full, soft, nontender, nondistended with normal bowel sounds. EXTREMITIES: Grossly normal looking, atraumatic, with no obvious edema or erythema. SKIN: Decreased skin turgor noted. No rash or erythema appreciated. OTR DRIVER: The patient is awake. Oriented to person at least. Disoriented. Two-point restraints on both wrists noted. Cranial nerves 2 through 12 are grossly intact. The patient moves all extremities. DIAGNOSTIC DATA: CBC today showed WBC count of 10.9, hemoglobin of 11.9, MCV of 89.9, and platelet of 392. Of note, on presentation on March 05, WBC was 11.0, MCV was 99.1, and platelet was 291. Coagulation panel yesterday, March 07, showed PT 15.2, INR 1.2, and PTT 31.3. D-dimer on March 05, 2020, was 2.66. Chemistry today showed sodium of 150, potassium of 3.7, chloride of 117, CO2 of 19, BUN of 51, creatinine of 2.22, glucose of 146, calcium of 8.3. On presentation on March 05, sodium was 136, potassium 5.8, chloride 109, CO2 of 13, BUN 56, creatinine 3.49, glucose 126, and calcium 8.9. Total bilirubin 0.6, AST 75, ALT 29, alkaline phosphatase 55, creatine kinase 1135, CK 4.7, troponin 0.759, total protein 7.5, and albumin 3.5. BNP on presentation was 39.0. Urinalysis on presentation on March 05, 2020, showed light yellow turbid urine with pH of 5.0, specific gravity of 1.014, urine protein of 30; negative ketone, nitrite, bilirubin, and leukocyte esterase. Urine blood was 2+. Microscopy showed 11 to 20 rbc's and 4 to 6 wbc's with 1+ bacteria. COVID PCR on presentation was positive. Chest x-ray on presentation showed hazy alveolar infiltrates in both mid and lower lung rankin consistent with bilateral infiltrates. Borderline cardiomegaly with postoperative sternotomy also was noted. ASSESSMENT: 1. Acute kidney injury: This most likely is due to hemodynamic factors related to volume depletion and use of ENMA inhibitor as well as rhabdomyolysis from volume depletion. Of note, on presentation, CK was 1135. The patient was clinically dry consistent with volume depletion and dehydration. Baseline creatinine is unknown, but the patient was noted to have a creatinine of 1.3 to 1.5 in 2016. 2. Chronic kidney disease, stage 3: Thought to be due to diabetes and hypertension. 3. Acute respiratory failure with hypoxia: Due to COVID pneumonia. 4. Volume depletion. Improved with IV fluid therapy. 5. Hypernatremia: Due to free water deficit. 6. Metabolic acidosis: This is due to pneumonic process. Diabetic ketoacidosis is unlikely. This has improved with bicarb infusion. CO2 had improved from 13 on presentation to 19 currently. 7. Rhabdomyolysis: Due to volume depletion. 8. History of diabetes on treatment. 9. Hypertension: Control is suboptimal. 10. Hyperkalemia: On presentation with potassium of 5.8. This is due to acute kidney injury as well as metabolic acidosis and use of RAAS dora. Resolved. 11. Acute encephalopathy: Multifactorial from sepsis, acidosis as well as hypoxia. PLAN: 1. We will start hypotonic solution with bicarb containing fluids due to associated metabolic acidosis. 2. Angelica oral intake with free water is recommended. 3. We will also get urine electrolytes. 4. We will monitor blood pressure and adjust antihypertensives to get adequate BP control. 5. We will also get CPK level, and if still elevated, we will escalate IV fluid therapy. 6. COVID pneumonia treatment as per primary attending and Infectious Disease. 7. We will monitor the patient closely to avoid fluid overload. Many thanks for involving us in the care of this patient. We will follow along with you. Job ID: [id number]
--- NOTE | 2020-03-09 10:53 | PQF ---
DOCUMENTATION CLARIFICATION FORM: Dear Dr. Harvey Date: 03/09/20 Please exercise your independent, professional judgment in responding to the clarification form. Clinical indicators are provided on the bottom of this form for your review. Please check appropriate box(es) to clarify if the following diagnosis has been ruled in our ruled out: SEPSIS [ ] Ruled in diagnosis [ ] Continue to treat [ x ] Resolved [ ] Ruled out diagnosis [ ] Improving [ ] Cannot rule out diagnosis [ ] Other diagnosis [ ] Unable to determine In addition, please specify: Present on Admission (POA): [ x] Yes [ ] No [ ] Unable to determine For continuity of documentation, please document condition throughout progress notes and discharge summary. Thank You. To be completed by CDI/Coding staff for physician review: CLINICAL INDICATORS - SIGNS / SYMPTOMS / LABS / RESULTS AND LOCATION IN ER NOTE: "SEPSIS" WBC 03/05: 11.0 BANDS 03/05: 13 CRP 03/06: 14.92 RISKS: WORSENING RESPIRATORY DISTRESS OVER LAST SEVERAL DAYS (ER NOTE) COVID 19 (ER, H&P) PNEUMONIA (ER, H&P) H/O DIABETES (H&P) H/O CVA (H&P) TREATMENT: IV ROCEPHIN (ER-03/06) IV FLUIDS (ER) IV AZITHROMYCIN (ER/03/06) BLOOD AND URINE CULTURES 03/06 CDS Signature: LIZZY Calles Phone #: [phone] Date: 03/09/20 This is a permanent part of the Medical Record [facility]
--- NOTE | 2020-03-11 15:41 | EKG ---
Test Reason : Blood Pressure : / mmHG Vent. Rate : 083 BPM Atrial Rate : 083 BPM P-R Int : 138 ms QRS Dur : 096 ms QT Int : 406 ms P-R-T Axes : 042 032 044 degrees QTc Int : 477 ms Normal sinus rhythm Normal ECG Confirmed by NIVIA KEANE, JANKI ([id number]), supervising editor news reel MARIA TERESA KU ([id number]) on 03/11/2020 3:41:11 PM Referred By: Confirmed By:JANKI GONZÁLES MD
== END 2020-03-08 16:40 | disposition expired | DRG 871 ==
LOC: ERS 11:03 → 2SW 15:14 → OBSVTOIN 15:14
PROVIDERS: ADMIT Family Medicine; ATTEND Family Medicine
PROC: 8E0ZXY6 Isolation (ICD-10-PCS; principal; 2020-03-05)
PROC: 5A0935A Assistance with Respiratory Ventilation, Less than 24 Consecutive Hours, High Flow/Velocity Cannula (ICD-10-PCS; 2020-03-07)
PROC: 5A12012 Performance of Cardiac Output, Single, Manual (ICD-10-PCS; 2020-03-08)
PROC: 0BH17EZ Insertion of Endotracheal Airway into Trachea, Via Natural or Artificial Opening (ICD-10-PCS; 2020-03-08)
PROC: XW13325 Transfusion of Convalescent Plasma (Nonautologous) into Peripheral Vein, Percutaneous Approach, New Technology Group 5 (ICD-10-PCS; 2020-03-08)
DX: A41.89 Other specified sepsis (principal); J12.89 Other viral pneumonia; U07.1 COVID-19; J96.21 Acute and chronic respiratory failure with hypoxia; G92 Toxic encephalopathy; N17.9 Acute kidney failure, unspecified; E87.2 Acidosis; E87.0 Hyperosmolality and hypernatremia; M62.82 Rhabdomyolysis; I47.2 Ventricular tachycardia; F41.9 Anxiety disorder, unspecified; F32.9 Major depressive disorder, single episode, unspecified; G40.909 Epilepsy, unspecified, not intractable, without status epilepticus; I49.01 Ventricular fibrillation; I25.10 Atherosclerotic heart disease of native coronary artery without angina pectoris; E87.5 Hyperkalemia; Z96.659 Presence of unspecified artificial knee joint; E11.65 Type 2 diabetes mellitus with hyperglycemia; N18.30 Chronic kidney disease, stage 3 unspecified; I12.9 Hypertensive chronic kidney disease with stage 1 through stage 4 chronic kidney disease, or unspecified chronic kidney disease; E11.22 Type 2 diabetes mellitus with diabetic chronic kidney disease; R77.8 Other specified abnormalities of plasma proteins; Z86.73 Personal history of transient ischemic attack (TIA), and cerebral infarction without residual deficits; Z98.890 Other specified postprocedural states; Z95.1 Presence of aortocoronary bypass graft; Z79.82 Long term (current) use of aspirin; Z87.820 Personal history of traumatic brain injury; Z79.899 Other long term (current) drug therapy; Z79.84 Long term (current) use of oral hypoglycemic drugs; I25.5 Ischemic cardiomyopathy
CPT/HCPCS: 36415; 36416; 36600; 71045; 80048; 80053; 81001; 82550; 82553; 83605; 83880; 84484; 85025; 85379; 85610; 85652; 85730; 86140; 86850; 86900; 86901; 87040; 87086; 87149; 92950; 93005; 94760; 96365; 96366; 96368; 96372; 96375; J0171; J0282; J0456; J0696; J1100; J1650; J1815; J3490; J7050; J7070; J8540; S0028; U0002